=== PATIENT | male | born 1985 | race Caucasian/White ===

== ENCOUNTER 2022-09-15 23:23 | Inpatient (IN) | payer MEDICARE ==
[~2022-09-15] VITALS: Ht 170.2 cm; Wt 148.1 kg
[2022-09-15] MEDS ORDERED: NOVOINJ SC (23:35)
[2022-09-15] MEDS ORDERED: SEMA1PEN2 SQ (23:35)
[2022-09-15] MEDS ORDERED: TRES100I SC (23:35)
[2022-09-16 01:12] LABS: HEMATOCRIT 44.6 % (42.0-52.0); HEMOGLOBIN 15.5 g/dl (13.5-17.5); MEAN CORPUSCULAR HEMOGLOBIN 28.3 pg (27.0-33.0); MEAN CORPUSCULAR HGB CONC 34.8 g/dl (32.0-36.5); MEAN CORPUSCULAR VOLUME 81.4 fl (80.0-96.0); PLATELET COUNT, AUTOMATED 264 10^3/uL (150-450); RED BLOOD COUNT 5.48 10^6/uL (4.30-6.10); WHITE BLOOD COUNT 10.4 10^3/uL (4.0-10.0)
[2022-09-16 01:34] LABS: BARBITURATES URINE NEGATIVE (NEGATIVE); CANNABINOIDS URINE NEGATIVE (NEGATIVE); COCAINE METABOLITE URINE NEGATIVE (NEGATIVE); METHADONE URINE NEGATIVE (NEGATIVE); OPIATES URINE NEGATIVE (NEGATIVE); PHENCYCLIDINE URINE NEGATIVE (NEGATIVE)
[2022-09-16 01:35] LABS: AMPHETAMINES LEVEL URINE NEGATIVE (NEGATIVE); BENZODIAZEPINES URINE NEGATIVE (NEGATIVE)
[2022-09-16 01:36] LABS: ETHYL ALCOHOL (ETHANOL) < 0.003 % (0.000-0.010)
[2022-09-16 01:38] LABS: ALBUMIN 4.1 G/DL (3.2-5.2); ALKALINE PHOSPHATASE 122 U/L (46-116); ALT/SGPT 37 U/L (7.0-40); AST/SGOT 21 U/L (<34); BILIRUBIN,DIRECT 0.2 MG/DL (<0.4); BILIRUBIN,TOTAL 0.4 MG/DL (0.3-1.2); BLOOD UREA NITROGEN 12 MG/DL (9-23); CALCIUM LEVEL 9.7 MG/DL (8.5-10.1); CARBON DIOXIDE LEVEL 24 MMOL/L (20-31); CHLORIDE LEVEL 100 MMOL/L (98-107); CREATININE FOR GFR 0.41 MG/DL (0.70-1.30); GLOMERULAR FILTRATION RATE > 60.0 (>60); GLUCOSE, FASTING 380 MG/DL (60-100); SALICYLATE LEVEL < 3.0 MG/DL (<30); SODIUM LEVEL 132 MMOL/L (136-145); TOTAL PROTEIN 7.5 G/DL (5.7-8.2)
[2022-09-16 01:39] LABS: ACETAMINOPHEN LEVEL < 2.0 UG/ML (10.0-20.0)
[2022-09-16 01:41] LABS: THYROID STIMULATING HORMONE 3.542 uIU/ML (0.55-4.78)
[2022-09-16] MEDS ORDERED: TRES100I SC (01:48)
[2022-09-16] MEDS ORDERED: INSUH10VL SC (01:48)
[2022-09-16] MEDS ORDERED: SEMA0.257 SQ (01:48)
[2022-09-16] MEDS ORDERED: LEVEMIR (INSULIN DETEMIR) 1 UNITS/0.01ML SC ONE (01:50)
[2022-09-16] MEDS ORDERED: HOME MED LIST COMPLETE! XX SCH (01:50)
[2022-09-16 02:13] LABS: HEMOGLOBIN A1c 12.2 % (4.0-6.0)
[2022-09-16] MEDS ORDERED: INSULIN LISPRO (NovoLOG) PER UNIT SC ONE (02:25)
[2022-09-16] MEDS ORDERED: MAALOX 30 ML SUSP *UDC PO PRN (02:45)
[2022-09-16] MEDS ORDERED: MOM 30ML SUSPENSION UDC PO PRN (02:45)
[2022-09-16] MEDS ORDERED: GLUCOSE 4GM CHEW TABLET PO PRN (03:10)
[2022-09-16] MEDS ORDERED: GLUCAGON INJ 1MG VIAL SC PRN (03:10)
[2022-09-16] MEDS ORDERED: DEXTROSE 50% 50ML SYRINGE IV PRN (03:10)
[2022-09-16 05:44] VITALS: BP 141/89
[2022-09-16] MEDS: INSULIN LISPRO (NovoLOG) PER UNIT SC SCH ×4 (06:40→21:10)
[2022-09-16] MEDS ORDERED: INSULIN LISPRO (NovoLOG) PER UNIT SC SCH (07:30)
[2022-09-16] MEDS ORDERED: hydrOXYzine 50 MG TAB PO PRN (16:15)
[2022-09-16 18:27] VITALS: BP 122/68
[2022-09-16] MEDS: LEVEMIR (INSULIN DETEMIR) 1 UNITS/0.01ML SC SCH (21:09)
[2022-09-17 06:22] VITALS: BP 116/70
[2022-09-17] MEDS: INSULIN LISPRO (NovoLOG) PER UNIT SC SCH ×4 (06:49→20:21)
[2022-09-17] MEDS: lamoTRIgine 25MG TAB PO SCH (08:15)
[2022-09-17] MEDS: ACETAMINOPHEN TAB 650MG DOSE (2X325MG) PO PRN (09:43)
[2022-09-17 18:06] VITALS: BP 139/82
[2022-09-17] MEDS: LEVEMIR (INSULIN DETEMIR) 1 UNITS/0.01ML SC SCH (20:20)
[2022-09-18 05:57] VITALS: BP 145/89
[2022-09-18] MEDS: INSULIN LISPRO (NovoLOG) PER UNIT SC SCH ×4 (06:54→20:20)
[2022-09-18] MEDS: lamoTRIgine 25MG TAB PO SCH (08:06)
[2022-09-18] MEDS: ACETAMINOPHEN TAB 650MG DOSE (2X325MG) PO PRN (08:07)
[2022-09-18 18:27] VITALS: BP 123/76
[2022-09-18] MEDS: LEVEMIR (INSULIN DETEMIR) 1 UNITS/0.01ML SC SCH (20:20)
[2022-09-18] MEDS: traZODone 50 MG TAB PO PRN (22:34)
[2022-09-19 05:55] VITALS: BP 99/66
[2022-09-19] MEDS: INSULIN LISPRO (NovoLOG) PER UNIT SC SCH ×4 (06:47→20:46)
[2022-09-19] MEDS: lamoTRIgine 25MG TAB PO SCH (08:43)
[2022-09-19] MEDS: ACETAMINOPHEN TAB 650MG DOSE (2X325MG) PO PRN (14:19)
[2022-09-19 17:29] VITALS: BP 130/79
[2022-09-19] MEDS: LEVEMIR (INSULIN DETEMIR) 1 UNITS/0.01ML SC SCH (20:45)
[2022-09-19] MEDS: traZODone 50 MG TAB PO PRN (23:33)
[2022-09-20 06:03] VITALS: BP 134/65
[2022-09-20] MEDS: INSULIN LISPRO (NovoLOG) PER UNIT SC SCH ×2 (06:21→11:53)
[2022-09-20] MEDS: lamoTRIgine 25MG TAB PO SCH (08:44)
[2022-09-20] MEDS ORDERED: LAMI25TA PO (12:58)
[2022-09-20] MEDS ORDERED: HYDR50TA70 PO (12:58)
[2022-09-20] MEDS ORDERED: TRAZ-252 PO (13:14)
== END 2022-09-20 14:36 | disposition home or self-care (01) | DRG 885 ==
LOC: M ED 23:23 → M ED INP 09-16 02:18 → M PSY 09-16 04:47
PROVIDERS: ADMIT Psychiatry & Neurology Psychiatry; ATTEND Psychiatry & Neurology Psychiatry
DX: F31.9 Bipolar disorder, unspecified (principal); R45.851 Suicidal ideations; Z68.43 Body mass index [BMI] 50.0-59.9, adult; F17.290 Nicotine dependence, other tobacco product, uncomplicated; F41.9 Anxiety disorder, unspecified; E11.40 Type 2 diabetes mellitus with diabetic neuropathy, unspecified; E11.65 Type 2 diabetes mellitus with hyperglycemia; E66.9 Obesity, unspecified; Z81.3 Family history of other psychoactive substance abuse and dependence; Z81.8 Family history of other mental and behavioral disorders; Z91.51 Personal history of suicidal behavior; Z88.0 Allergy status to penicillin; Z79.4 Long term (current) use of insulin; Z62.811 Personal history of psychological abuse in childhood; Z63.0 Problems in relationship with spouse or partner

== ENCOUNTER 2022-09-30 14:27 | Inpatient (IN) | payer MEDICARE ==
[~2022-09-30] VITALS: Ht 170.2 cm; Wt 148.6 kg
[~2022-09-30 14:27] MED LIST: HYDR50TA70 PO; INSUH10VL SC; LAMI25TA PO; NOVOINJ SC; SEMA0.257 SQ; SEMA1PEN2 SQ; TRAZ-252 PO; TRES100I SC
[2022-09-30 15:03] LABS: HEMOGLOBIN 15.3 g/dl (13.5-17.5); MEAN CORPUSCULAR HEMOGLOBIN 27.9 pg (27.0-33.0); MEAN CORPUSCULAR VOLUME 82.1 fl (80.0-96.0); PLATELET COUNT, AUTOMATED 274 10^3/uL (150-450); RED BLOOD COUNT 5.48 10^6/uL (4.30-6.10); WHITE BLOOD COUNT 8.8 10^3/uL (4.0-10.0)
[2022-09-30 15:32] LABS: AMPHETAMINES LEVEL URINE NEGATIVE (NEGATIVE); BARBITURATES URINE NEGATIVE (NEGATIVE); BENZODIAZEPINES URINE NEGATIVE (NEGATIVE); CANNABINOIDS URINE NEGATIVE (NEGATIVE); PHENCYCLIDINE URINE NEGATIVE (NEGATIVE)
[2022-09-30 15:33] LABS: COCAINE METABOLITE URINE NEGATIVE (NEGATIVE); ETHYL ALCOHOL (ETHANOL) < 0.003 % (0.000-0.010); METHADONE URINE NEGATIVE (NEGATIVE); OPIATES URINE NEGATIVE (NEGATIVE)
[2022-09-30 15:34] LABS: ACETAMINOPHEN LEVEL < 2.0 UG/ML (10.0-20.0)
[2022-09-30 15:35] LABS: SALICYLATE LEVEL < 3.0 MG/DL (<30)
[2022-09-30 15:38] LABS: THYROID STIMULATING HORMONE 1.866 uIU/ML (0.55-4.78)
[2022-09-30 15:40] LABS: ALBUMIN 3.7 G/DL (3.2-5.2); ALKALINE PHOSPHATASE 123 U/L (46-116); ALT/SGPT 37 U/L (7.0-40); AST/SGOT 23 U/L (<34); BILIRUBIN,DIRECT 0.2 MG/DL (<0.4); BILIRUBIN,TOTAL 0.6 MG/DL (0.3-1.2); BLOOD UREA NITROGEN 10 MG/DL (9-23); CALCIUM LEVEL 9.2 MG/DL (8.5-10.1); CARBON DIOXIDE LEVEL 27 MMOL/L (20-31); CHLORIDE LEVEL 100 MMOL/L (98-107); CREATININE FOR GFR 0.48 MG/DL (0.70-1.30); GLOMERULAR FILTRATION RATE > 60.0 (>60); GLUCOSE, FASTING 403 MG/DL (60-100); POTASSIUM SERUM 4.5 MMOL/L (3.5-5.1); SODIUM LEVEL 134 MMOL/L (136-145); TOTAL PROTEIN 7.1 G/DL (5.7-8.2)
[2022-09-30] MEDS ORDERED: INSULIN LISPRO (NovoLOG) PER UNIT SC SCH (17:30)
[2022-09-30] MEDS ORDERED: MAALOX 30 ML SUSP *UDC PO PRN (17:30)
[2022-09-30] MEDS ORDERED: OLANZapine ORAL DISINTEGRATING TAB 5MG PO PRN (17:30)
[2022-09-30] MEDS ORDERED: MOM 30ML SUSPENSION UDC PO PRN (17:30)
[2022-09-30] MEDS ORDERED: GLUCAGON INJ 1MG VIAL SC PRN (17:40)
[2022-09-30] MEDS ORDERED: GLUCOSE 4GM CHEW TABLET PO PRN (17:40)
[2022-09-30] MEDS ORDERED: DEXTROSE 50% 50ML SYRINGE IV PRN (17:40)
[2022-09-30] MEDS ORDERED: LAMO25TA4 PO (18:21)
[2022-09-30] MEDS ORDERED: TRAZ-252 PO (18:21)
[2022-09-30] MEDS ORDERED: HYDR50TA70 PO (18:21)
[2022-09-30] MEDS: INSULIN LISPRO (NovoLOG) PER UNIT SC SCH ×2 (18:23→21:27)
[2022-09-30] MEDS ORDERED: HOME MED LIST COMPLETE! XX SCH (18:25)
[2022-09-30] MEDS ORDERED: LEVEMIR (INSULIN DETEMIR) 1 UNITS/0.01ML SC SCH (21:00)
[2022-09-30] MEDS: LEVEMIR (INSULIN DETEMIR) 1 UNITS/0.01ML SC SCH (21:27)
[2022-09-30] MEDS: lamoTRIgine 25MG TAB PO SCH (21:46)
[2022-09-30] MEDS: traZODone 50 MG TAB PO PRN (22:48)
[2022-10-01 06:41] VITALS: BP 115/55
[2022-10-01] MEDS: INSULIN LISPRO (NovoLOG) PER UNIT SC SCH ×4 (06:52→20:56)
[2022-10-01] MEDS ORDERED: INSULIN LISPRO (NovoLOG) PER UNIT SC SCH (07:30)
[2022-10-01] MEDS: lamoTRIgine 25MG TAB PO SCH ×2 (08:26→20:55)
[2022-10-01] MEDS: ACETAMINOPHEN TAB 650MG DOSE (2X325MG) PO PRN (09:29)
[2022-10-01 18:11] VITALS: BP 143/82
[2022-10-01] MEDS: LEVEMIR (INSULIN DETEMIR) 1 UNITS/0.01ML SC SCH (20:55)
[2022-10-01] MEDS: traZODone 50 MG TAB PO PRN (20:55)
[2022-10-02 06:14] VITALS: BP 128/65
[2022-10-02] MEDS: INSULIN LISPRO (NovoLOG) PER UNIT SC SCH ×4 (06:46→21:27)
[2022-10-02] MEDS: lamoTRIgine 25MG TAB PO SCH ×2 (08:01→21:26)
[2022-10-02 18:00] VITALS: BP 127/73
[2022-10-02] MEDS ORDERED: INSULIN LISPRO (NovoLOG) PER UNIT SC ONE (18:25)
[2022-10-02] MEDS: LEVEMIR (INSULIN DETEMIR) 1 UNITS/0.01ML SC SCH (18:45)
[2022-10-02] MEDS: ACETAMINOPHEN TAB 650MG DOSE (2X325MG) PO PRN (20:54)
[2022-10-02] MEDS: traZODone 50 MG TAB PO PRN (21:26)
[2022-10-03 06:04] VITALS: BP 133/68
[2022-10-03] MEDS: INSULIN LISPRO (NovoLOG) PER UNIT SC SCH ×4 (06:56→20:52)
[2022-10-03] MEDS: lamoTRIgine 25MG TAB PO SCH ×2 (07:59→20:51)
[2022-10-03] MEDS: LEVEMIR (INSULIN DETEMIR) 1 UNITS/0.01ML SC SCH ×2 (08:01→20:51)
[2022-10-03 18:00] VITALS: BP 138/90
[2022-10-03] MEDS: traZODone 50 MG TAB PO PRN (21:22)
[2022-10-04] MEDS: LEVEMIR (INSULIN DETEMIR) 1 UNITS/0.01ML SC SCH (06:51)
[2022-10-04] MEDS: INSULIN LISPRO (NovoLOG) PER UNIT SC SCH ×2 (06:51→12:04)
[2022-10-04 06:57] VITALS: BP 148/90
[2022-10-04] MEDS: lamoTRIgine 25MG TAB PO SCH (08:22)
[2022-10-04] MEDS: ACETAMINOPHEN TAB 650MG DOSE (2X325MG) PO PRN (10:20)
[2022-10-04] MEDS ORDERED: CVS1KIT XX (10:40)
[2022-10-04] MEDS ORDERED: LAMO25TA4 PO (10:40)
[2022-10-04] MEDS ORDERED: INSUDET SC (10:40)
[2022-10-04] MEDS ORDERED: LANC1COM MC (10:40)
[2022-10-05] MEDS ORDERED: INSU1MIS XX (14:29)
== END 2022-10-04 13:59 | disposition home or self-care (01) | DRG 885 ==
LOC: M ED 14:27 → M ED INP 17:30 → M PSY 21:30
PROVIDERS: ADMIT Psychiatry & Neurology Psychiatry; ATTEND Psychiatry & Neurology Psychiatry
DX: F31.30 Bipolar disorder, current episode depressed, mild or moderate severity, unspecified (principal); R45.851 Suicidal ideations; E87.1 Hypo-osmolality and hyponatremia; F17.200 Nicotine dependence, unspecified, uncomplicated; F41.9 Anxiety disorder, unspecified; F79 Unspecified intellectual disabilities; Z56.0 Unemployment, unspecified; E11.9 Type 2 diabetes mellitus without complications; E66.9 Obesity, unspecified; Z79.4 Long term (current) use of insulin; Z79.899 Other long term (current) drug therapy; Z88.0 Allergy status to penicillin; Z20.822 Contact with and (suspected) exposure to COVID-19; Z87.820 Personal history of traumatic brain injury

== ENCOUNTER 2022-11-05 16:09 | Emergency (ER) | payer MEDICARE ==
[~2022-11-05] VITALS: Ht 170.2 cm; Wt 140.8 kg
[~2022-11-05 16:09] MED LIST changes: +CVS1KIT XX; +INSU1MIS XX; +INSUDET SC; +LAMO25TA4 PO; +LANC1COM MC
[2022-11-05 16:57] LABS: BASO # 0.1 10^3/uL (0.0-0.2); BASO % 0.7 % (0.0-1.0); EOS # 0.1 10^3/uL (0.0-0.5); EOS % 1.4 % (0.0-3.0); HEMATOCRIT 43.6 % (42.0-52.0); HEMOGLOBIN 14.8 g/dl (13.5-17.5); LYMPH # 2.3 10^3/uL (1.5-5.0); LYMPH % 27.5 % (24.0-44.0); MEAN CORPUSCULAR HEMOGLOBIN 27.7 pg (27.0-33.0); MEAN CORPUSCULAR HGB CONC 33.9 g/dl (32.0-36.5); MEAN CORPUSCULAR VOLUME 81.5 fl (80.0-96.0); MONO # 0.6 10^3/uL (0.0-0.8); MONO % 7.3 % (2.0-8.0); NEUTROPHILS # 5.3 10^3/uL (1.5-8.5); NEUTROPHILS % 62.6 % (36.0-66.0); PLATELET COUNT, AUTOMATED 261 10^3/uL (150-450); RED BLOOD COUNT 5.35 10^6/uL (4.30-6.10); WHITE BLOOD COUNT 8.5 10^3/uL (4.0-10.0)
[2022-11-05 17:19] LABS: CK-MB VALUE MASS 1.9 NG/ML (<3.6); ETHYL ALCOHOL (ETHANOL) < 0.003 % (0.000-0.010)
[2022-11-05 17:20] LABS: SALICYLATE LEVEL < 3.0 MG/DL (<30)
[2022-11-05 17:21] LABS: ACETAMINOPHEN LEVEL < 2.0 UG/ML (10.0-20.0); ALBUMIN 3.7 G/DL (3.2-5.2); ALKALINE PHOSPHATASE 108 U/L (46-116); ALT/SGPT 30 U/L (7.0-40); AST/SGOT 16 U/L (<34); BILIRUBIN,DIRECT 0.3 MG/DL (<0.4); BILIRUBIN,TOTAL 0.9 MG/DL (0.3-1.2); BLOOD UREA NITROGEN 11 MG/DL (9-23); CALCIUM LEVEL 8.6 MG/DL (8.5-10.1); CARBON DIOXIDE LEVEL 25 MMOL/L (20-31); CHLORIDE LEVEL 104 MMOL/L (98-107); CREATININE FOR GFR 0.46 MG/DL (0.70-1.30); GLOMERULAR FILTRATION RATE > 60.0 (>60); GLUCOSE, FASTING 328 MG/DL (60-100); SODIUM LEVEL 136 MMOL/L (136-145); TOTAL PROTEIN 6.8 G/DL (5.7-8.2)
[2022-11-05 17:22] LABS: CPK CREATINE PHOSPHOKINASE 94 U/L (46-171); MB/CK RELATIVE INDEX 2.02 (< OR =4)
[2022-11-05 17:23] LABS: THYROID STIMULATING HORMONE 2.928 uIU/ML (0.55-4.78)
[2022-11-05] MEDS ORDERED: ISOVUE-370 76% 100ML VIAL As Ordered ONE (18:34)
[2022-11-05] MEDS ORDERED: diphenhydrAMINE 50MG/ML VIAL IV STA (19:36)
[2022-11-05] MEDS ORDERED: NS 1,000 ML IV ONE (19:40)
[2022-11-05] MEDS ORDERED: METOCLOPRAMIDE INJ 10MG/2ML VIAL IV ONE (19:40)
[2022-11-05] MEDS ORDERED: KETOROLAC 30 MG/ML 1ML VIAL IV ONE (19:40)
[2022-11-05 21:00] VITALS: TEMP 98.8
[2022-11-05 21:30] VITALS: BP 122/60
[2022-11-05 21:31] VITALS: O2SAT 97
== END 2022-11-05 21:46 | disposition home or self-care (01) ==
LOC: M ED 16:09
DX: G43.909 Migraine, unspecified, not intractable, without status migrainosus (principal); F31.9 Bipolar disorder, unspecified; Z86.73 Personal history of transient ischemic attack (TIA), and cerebral infarction without residual deficits; Z88.0 Allergy status to penicillin; Z79.4 Long term (current) use of insulin; Z79.899 Other long term (current) drug therapy
CPT/HCPCS: 70450; 70496; 70498; 71045; 80048; 80076; 80143; 81001; 82077; 82140; 82550; 82553; 83605; 84443; 84484; 85025; 87040; 87077; 87086; 93005; 93041; 94760; 99285; J1200; J1885; J2765; Q9967

== ENCOUNTER 2022-11-14 14:10 | Inpatient (IN) | payer MEDICARE ==
[~2022-11-14] VITALS: Ht 170.2 cm; Wt 150.0 kg
[2022-11-14 14:44] LABS: BASO # 0.1 10^3/uL (0.0-0.2); BASO % 0.7 % (0.0-1.0); EOS # 0.1 10^3/uL (0.0-0.5); EOS % 0.9 % (0.0-3.0); HEMATOCRIT 43.2 % (42.0-52.0); HEMOGLOBIN 14.5 g/dl (13.5-17.5); LYMPH # 1.9 10^3/uL (1.5-5.0); LYMPH % 21.6 % (24.0-44.0); MEAN CORPUSCULAR HGB CONC 33.6 g/dl (32.0-36.5); MEAN CORPUSCULAR VOLUME 83.4 fl (80.0-96.0); MONO # 0.4 10^3/uL (0.0-0.8); MONO % 4.8 % (2.0-8.0); NEUTROPHILS # 6.1 10^3/uL (1.5-8.5); NEUTROPHILS % 71.1 % (36.0-66.0); PLATELET COUNT, AUTOMATED 250 10^3/uL (150-450); RED BLOOD COUNT 5.18 10^6/uL (4.30-6.10); WHITE BLOOD COUNT 8.6 10^3/uL (4.0-10.0)
[2022-11-14 14:50] LABS: ERYTHROCYTE SEDIMENTATION RATE 45 mm/hr (0-15)
[2022-11-14 15:22] LABS: BLOOD UREA NITROGEN 11 MG/DL (9-23); CALCIUM LEVEL 8.8 MG/DL (8.5-10.1); CARBON DIOXIDE LEVEL 27 MMOL/L (20-31); CHLORIDE LEVEL 100 MMOL/L (98-107); CREATININE FOR GFR 0.44 MG/DL (0.70-1.30); GLOMERULAR FILTRATION RATE > 60.0 (>60); GLUCOSE, FASTING 552 MG/DL (60-100); POTASSIUM SERUM 4.1 MMOL/L (3.5-5.1); SODIUM LEVEL 135 MMOL/L (136-145)
[2022-11-14] MEDS ORDERED: VANCOMYCIN HCL 2,000 MG, VIAL MATE ADAPTER 1 EACH in D5W 250 ML IV STA (16:39)
[2022-11-14] MEDS ORDERED: metroNIDAZOLE (FLAGYL) 500MG TABLET PO STA (16:39)
[2022-11-14] MEDS ORDERED: KETOROLAC 30 MG/ML 1ML VIAL IV ONE (16:40)
[2022-11-14] MEDS ORDERED: CLINDAMYCIN 300 MG in IV 1 EA IV ONE (16:40)
[2022-11-14 17:22] LABS: AMYLASE 24 U/L (30-118)
[2022-11-14 17:45] LABS: VENOUS BASE EXCESS -1.2 (-2.0-2.0); VENOUS HCO3 23.6 MMOL/L (23.0-27.0); VENOUS O2 SATURATION 76.5 % (60.0-80.0); VENOUS PARTIAL PRESSURE CO2 39.9 mmHg (38.0-50.0); VENOUS PARTIAL PRESSURE O2 39.4 mmHg (30.0-50.0); VENOUS TOTAL CO2 24.8 MMOL/L (24.0-28.0)
[2022-11-14 17:45] LABS: ALBUMIN 3.5 G/DL (3.2-5.2); ALKALINE PHOSPHATASE 100 U/L (46-116); ALT/SGPT 22 U/L (7.0-40); AST/SGOT < 8 U/L (<34); BILIRUBIN,DIRECT 0.2 MG/DL (<0.4); BILIRUBIN,TOTAL 0.5 MG/DL (0.3-1.2)
[2022-11-14] MEDS ORDERED: VANCOMYCIN HCL 1,000 MG, VIAL MATE ADAPTER 1 EACH in D5W 250 ML IV ONE ×2 (18:00→19:00)
[2022-11-14 18:20] LABS: RSV AMPLIFICATION NEGATIVE (NEGATIVE)
[2022-11-14] MEDS ORDERED: LAMO100T3 PO (18:49)
[2022-11-14] MEDS ORDERED: INSUDET SC (18:49)
[2022-11-14] MEDS ORDERED: HOME MED LIST COMPLETE! XX SCH (18:50)
[2022-11-14] MEDS ORDERED: LevoFLOXacin IV 750 MG in IV 1 EA IV ONE (20:00)
[2022-11-14] MEDS ORDERED: LEVEMIR (INSULIN DETEMIR) 1 UNITS/0.01ML SC SCH (21:00)
[2022-11-14] MEDS ORDERED: HumuLIN R (REGULAR) INSULIN (NovoLIN R) **100U/ML** PER UNIT IV STA (21:39)
[2022-11-14] MEDS ORDERED: hydrOXYzine 50 MG TAB PO PRN (21:45)
[2022-11-14] MEDS ORDERED: DEXTROSE 50% 50ML SYRINGE IV PRN (21:45)
[2022-11-14] MEDS ORDERED: ACETAMINOPHEN TAB 650MG DOSE (2X325MG) PO PRN (21:45)
[2022-11-14] MEDS ORDERED: VANCOMYCIN HCL 2,000 MG, VIAL MATE ADAPTER 1 EACH in NS 250 ML IV SCH (21:45)
[2022-11-14] MEDS ORDERED: GLUCAGON INJ 1MG VIAL SC PRN (21:45)
[2022-11-14] MEDS ORDERED: GLUCOSE 4GM CHEW TABLET PO PRN (21:45)
[2022-11-14] MEDS: traZODone 50 MG TAB PO SCH (22:24)
[2022-11-14] MEDS: lamoTRIgine 25MG TAB PO SCH (22:24)
[2022-11-14] MEDS: NS 1,000 ML IV SCH ×2 (22:25→22:46)
[2022-11-14 22:54] VITALS: BP 116/66; TEMP 97.5; O2SAT 97
[2022-11-14] MEDS ORDERED: KETOROLAC 30 MG/ML 1ML VIAL IV PRN (23:00)
[2022-11-14] MEDS: INSULIN LISPRO (NovoLOG) PER UNIT SC SCH (23:23)
[2022-11-15] MEDS: NS 1,000 ML IV SCH ×3 (00:26→17:03)
[2022-11-15] MEDS ORDERED: VANCOMYCIN HCL 1,000 MG, VIAL MATE ADAPTER 1 EACH in D5W 250 ML IV SCH (02:00)
[2022-11-15] MEDS ORDERED: VANCOMYCIN HCL 500 MG in D5W MINI-BAG PLUS 100 ML IV SCH ×2 (03:00→11:00)
[2022-11-15 06:00] VITALS: BP 127/77; TEMP 97; O2SAT 97
[2022-11-15 06:19] LABS: ALBUMIN 2.8 G/DL (3.2-5.2); ALKALINE PHOSPHATASE 83 U/L (46-116); ALT/SGPT 14 U/L (7.0-40); AST/SGOT 12 U/L (<34); BILIRUBIN,TOTAL 0.5 MG/DL (0.3-1.2); BLOOD UREA NITROGEN 12 MG/DL (9-23); CALCIUM LEVEL 8.5 MG/DL (8.5-10.1); CARBON DIOXIDE LEVEL 28 MMOL/L (20-31); CHLORIDE LEVEL 101 MMOL/L (98-107); CREATININE FOR GFR 0.53 MG/DL (0.70-1.30); GLOMERULAR FILTRATION RATE > 60.0 (>60); GLUCOSE, FASTING 413 MG/DL (60-100); POTASSIUM SERUM 3.8 MMOL/L (3.5-5.1); SODIUM LEVEL 135 MMOL/L (136-145); TOTAL PROTEIN 5.5 G/DL (5.7-8.2)
[2022-11-15] MEDS ORDERED: HumuLIN R (REGULAR) INSULIN (NovoLIN R) **100U/ML** PER UNIT IV STA (06:27)
[2022-11-15 07:38] LABS: ANTI-STREPTOLYSIN O QUANT 192.6 IU/ML (<195)
[2022-11-15] MEDS: lamoTRIgine 25MG TAB PO SCH ×2 (07:46→22:07)
[2022-11-15] MEDS: LEVEMIR (INSULIN DETEMIR) 1 UNITS/0.01ML SC SCH ×2 (07:47→22:08)
[2022-11-15] MEDS: INSULIN LISPRO (NovoLOG) PER UNIT SC SCH ×4 (07:47→22:08)
[2022-11-15] MEDS: VANCOMYCIN HCL 750 MG, VIAL MATE ADAPTER 1 EACH in D5W 250 ML IV SCH ×2 (10:10→17:37)
[2022-11-15] MEDS ORDERED: PROHANCE 279.3MG/ML 15ML VIAL As Ordered ONE (11:41)
[2022-11-15] MEDS ORDERED: PROHANCE 279.3MG/ML 5ML VIAL As Ordered ONE (11:41)
[2022-11-15 11:55] LABS: HEMOGLOBIN A1c 11.6 % (4.0-6.0)
[2022-11-15 14:00] VITALS: BP 117/58; TEMP 97.9; O2SAT 98
[2022-11-15] MEDS ORDERED: VANCOMYCIN HCL 750 MG, VIAL MATE ADAPTER 1 EACH in D5W 250 ML IV ONE (19:00)
[2022-11-15 20:20] VITALS: BP 136/72; TEMP 98.1; O2SAT 98
[2022-11-15] MEDS: traZODone 50 MG TAB PO SCH (22:08)
[2022-11-15] MEDS: HEPARIN SOD (PORCINE) 5000UNITS/ML 1ML VIAL/SYRINGE SC SCH (22:09)
[2022-11-16] MEDS: VANCOMYCIN HCL 750 MG, VIAL MATE ADAPTER 1 EACH in D5W 250 ML IV SCH ×4 (02:56→11:00)
[2022-11-16] MEDS: HEPARIN SOD (PORCINE) 5000UNITS/ML 1ML VIAL/SYRINGE SC SCH (06:36)
[2022-11-16] MEDS: NS 1,000 ML IV SCH (06:38)
[2022-11-16 06:40] VITALS: BP 138/77; TEMP 97.9; O2SAT 98
[2022-11-16 07:32] LABS: BASO # 0.1 10^3/uL (0.0-0.2); BASO % 0.7 % (0.0-1.0); EOS # 0.2 10^3/uL (0.0-0.5); EOS % 2.6 % (0.0-3.0); HEMATOCRIT 39.2 % (42.0-52.0); HEMOGLOBIN 13.1 g/dl (13.5-17.5); LYMPH # 2.8 10^3/uL (1.5-5.0); LYMPH % 33.6 % (24.0-44.0); MEAN CORPUSCULAR HEMOGLOBIN 28.1 pg (27.0-33.0); MEAN CORPUSCULAR HGB CONC 33.4 g/dl (32.0-36.5); MEAN CORPUSCULAR VOLUME 83.9 fl (80.0-96.0); MONO # 0.5 10^3/uL (0.0-0.8); MONO % 5.4 % (2.0-8.0); NEUTROPHILS # 4.7 10^3/uL (1.5-8.5); NEUTROPHILS % 56.7 % (36.0-66.0); PLATELET COUNT, AUTOMATED 247 10^3/uL (150-450); RED BLOOD COUNT 4.67 10^6/uL (4.30-6.10); WHITE BLOOD COUNT 8.3 10^3/uL (4.0-10.0)
[2022-11-16 08:23] LABS: BLOOD UREA NITROGEN 11 MG/DL (9-23); CARBON DIOXIDE LEVEL 27 MMOL/L (20-31); CHLORIDE LEVEL 102 MMOL/L (98-107); CREATININE FOR GFR 0.44 MG/DL (0.70-1.30); GLOMERULAR FILTRATION RATE > 60.0 (>60); GLUCOSE, FASTING 298 MG/DL (60-100); POTASSIUM SERUM 3.7 MMOL/L (3.5-5.1); SODIUM LEVEL 135 MMOL/L (136-145)
[2022-11-16] MEDS: INSULIN LISPRO (NovoLOG) PER UNIT SC SCH ×2 (09:33→12:19)
[2022-11-16] MEDS: lamoTRIgine 25MG TAB PO SCH (09:33)
[2022-11-16] MEDS: LEVEMIR (INSULIN DETEMIR) 1 UNITS/0.01ML SC SCH (09:34)
[2022-11-16] MEDS ORDERED: METF-877 PO (10:38)
[2022-11-16] MEDS ORDERED: INSUDET SC (10:38)
[2022-11-16] MEDS ORDERED: DOXY-444 PO (10:38)
== END 2022-11-16 13:15 | disposition home or self-care (01) | DRG 603 ==
LOC: M ED 14:10 → M ED INP 21:42 → ENRESERV 22:22 → M MS5PR 22:55
PROVIDERS: ADMIT Internal Medicine; ATTEND Internal Medicine
DX: L03.115 Cellulitis of right lower limb (principal); Z68.42 Body mass index [BMI] 45.0-49.9, adult; E11.65 Type 2 diabetes mellitus with hyperglycemia; E66.01 Morbid (severe) obesity due to excess calories; F41.9 Anxiety disorder, unspecified; Z88.0 Allergy status to penicillin; F39 Unspecified mood [affective] disorder; Z91.138 Patient's unintentional underdosing of medication regimen for other reason; T38.3X6A Underdosing of insulin and oral hypoglycemic [antidiabetic] drugs, initial encounter; Z79.4 Long term (current) use of insulin; Z79.899 Other long term (current) drug therapy

== ENCOUNTER 2022-11-24 13:21 | Emergency (ER) | payer MEDICARE ==
[~2022-11-24] VITALS: Ht 170.2 cm; Wt 147.1 kg
[~2022-11-24 13:21] MED LIST changes: +DOXY-444 PO; +LAMO100T3 PO; +METF-877 PO
[2022-11-24 15:45] LABS: BASO # 0.1 10^3/uL (0.0-0.2); BASO % 0.6 % (0.0-1.0); EOS # 0.1 10^3/uL (0.0-0.5); EOS % 1.2 % (0.0-3.0); HEMATOCRIT 40.5 % (42.0-52.0); HEMOGLOBIN 14.1 g/dl (13.5-17.5); LYMPH # 2.2 10^3/uL (1.5-5.0); LYMPH % 21.7 % (24.0-44.0); MEAN CORPUSCULAR HEMOGLOBIN 28.9 pg (27.0-33.0); MEAN CORPUSCULAR HGB CONC 34.8 g/dl (32.0-36.5); MONO # 0.6 10^3/uL (0.0-0.8); MONO % 5.5 % (2.0-8.0); NEUTROPHILS # 7.1 10^3/uL (1.5-8.5); NEUTROPHILS % 70.3 % (36.0-66.0); PLATELET COUNT, AUTOMATED 251 10^3/uL (150-450); RED BLOOD COUNT 4.88 10^6/uL (4.30-6.10); WHITE BLOOD COUNT 10.1 10^3/uL (4.0-10.0)
[2022-11-24 15:52] LABS: BLOOD UREA NITROGEN 12 MG/DL (9-23); CALCIUM LEVEL 8.7 MG/DL (8.5-10.1); CARBON DIOXIDE LEVEL 29 MMOL/L (20-31); CHLORIDE LEVEL 101 MMOL/L (98-107); CREATININE FOR GFR 0.42 MG/DL (0.70-1.30); GLOMERULAR FILTRATION RATE > 60.0 (>60); GLUCOSE, FASTING 302 MG/DL (60-100); SODIUM LEVEL 133 MMOL/L (136-145)
[2022-11-24 16:00] LABS: RSV AMPLIFICATION NEGATIVE (NEGATIVE)
[2022-11-24 16:20] LABS: ERYTHROCYTE SEDIMENTATION RATE 39 mm/hr (0-15)
[2022-11-24] MEDS ORDERED: INSULIN LISPRO (NovoLOG) PER UNIT SC ONE (18:00)
[2022-11-24] MEDS ORDERED: NS 1,000 ML IV ONE (18:25)
[2022-11-24 19:53] VITALS: BP 112/62; TEMP 97.2; O2SAT 100
== END 2022-11-24 20:00 | disposition home or self-care (01) ==
LOC: M ED 13:21
DX: E11.621 Type 2 diabetes mellitus with foot ulcer (principal); Z88.0 Allergy status to penicillin; Z91.010 Allergy to peanuts; Z79.4 Long term (current) use of insulin; Z79.899 Other long term (current) drug therapy; Z79.84 Long term (current) use of oral hypoglycemic drugs

== ENCOUNTER 2022-12-15 17:32 | Emergency (ER) | payer MEDICARE ==
[~2022-12-15] VITALS: Ht 170.2 cm; Wt 141.8 kg
[2022-12-15 18:33] LABS: BASO % 0.4 % (0.0-1.0); EOS # 0.1 10^3/uL (0.0-0.5); EOS % 0.7 % (0.0-3.0); HEMATOCRIT 44.4 % (42.0-52.0); HEMOGLOBIN 14.8 g/dl (13.5-17.5); LYMPH # 2.4 10^3/uL (1.5-5.0); LYMPH % 21.6 % (24.0-44.0); MEAN CORPUSCULAR HEMOGLOBIN 27.8 pg (27.0-33.0); MEAN CORPUSCULAR HGB CONC 33.3 g/dl (32.0-36.5); MEAN CORPUSCULAR VOLUME 83.3 fl (80.0-96.0); MONO # 0.7 10^3/uL (0.0-0.8); MONO % 6.7 % (2.0-8.0); NEUTROPHILS # 7.7 10^3/uL (1.5-8.5); NEUTROPHILS % 69.9 % (36.0-66.0); RED BLOOD COUNT 5.33 10^6/uL (4.30-6.10)
[2022-12-15 19:07] LABS: BLOOD UREA NITROGEN 11 MG/DL (9-23); CALCIUM LEVEL 9.2 MG/DL (8.5-10.1); CARBON DIOXIDE LEVEL 24 MMOL/L (20-31); CHLORIDE LEVEL 100 MMOL/L (98-107); CREATININE FOR GFR 0.41 MG/DL (0.70-1.30); GLOMERULAR FILTRATION RATE > 60.0 (>60); GLUCOSE, FASTING 373 MG/DL (60-100); POTASSIUM SERUM 4.2 MMOL/L (3.5-5.1); SODIUM LEVEL 134 MMOL/L (136-145)
[2022-12-15 19:30] LABS: ERYTHROCYTE SEDIMENTATION RATE 31 mm/hr (0-15)
[2022-12-15] MEDS ORDERED: D5W IV ONE (20:45)
[2022-12-15] MEDS ORDERED: MORPHINE 2 MG/ML 1ML VIAL IV ONE (20:45)
[2022-12-15] MEDS ORDERED: DOXYCYCLINE HYCLATE IV ONE (20:45)
[2022-12-15] MEDS ORDERED: DOXYCYCLINE HYCLATE 200 MG in D5W MINI-BAG PLUS 100 ML IV ONE (20:45)
[2022-12-15] MEDS ORDERED: ISOVUE-370 76% 100ML VIAL As Ordered ONE (20:49)
[2022-12-15] MEDS ORDERED: DOXY100C82 PO (22:01)
[2022-12-15] MEDS ORDERED: TRAM50TA2 PO (22:03)
[2022-12-15 22:09] VITALS: BP 133/77; TEMP 98.3; O2SAT 98
== END 2022-12-15 22:21 | disposition home or self-care (01) ==
LOC: M ED 17:32
DX: L03.115 Cellulitis of right lower limb (principal); Z88.0 Allergy status to penicillin; Z91.010 Allergy to peanuts; E11.9 Type 2 diabetes mellitus without complications; F41.9 Anxiety disorder, unspecified; F32.A Depression, unspecified; F31.9 Bipolar disorder, unspecified; Z79.4 Long term (current) use of insulin; Z79.899 Other long term (current) drug therapy; Z79.84 Long term (current) use of oral hypoglycemic drugs
CPT/HCPCS: 36415; 73701; 80048; 85025; 85652; 86140; 87040; 96365; 96375; 99283; Q9967

== ENCOUNTER 2023-01-24 17:34 | Emergency (ER) | payer MEDICARE ==
[~2023-01-24] VITALS: Ht 170.2 cm; Wt 142.0 kg
[~2023-01-24 17:34] MED LIST changes: +DOXY100C82 PO; +TRAM50TA2 PO
[2023-01-24] MEDS ORDERED: NS 1,000 ML IV ONE (20:40)
[2023-01-24 21:40] LABS: BASO # 0.1 10^3/uL (0.0-0.2); BASO % 0.7 % (0.0-1.0); EOS # 0.1 10^3/uL (0.0-0.5); HEMATOCRIT 41.3 % (42.0-52.0); HEMOGLOBIN 13.9 g/dl (13.5-17.5); LYMPH # 2.8 10^3/uL (1.5-5.0); LYMPH % 25.7 % (24.0-44.0); MEAN CORPUSCULAR HGB CONC 33.7 g/dl (32.0-36.5); MEAN CORPUSCULAR VOLUME 83.3 fl (80.0-96.0); MONO # 0.8 10^3/uL (0.0-0.8); MONO % 7.6 % (2.0-8.0); NEUTROPHILS # 6.9 10^3/uL (1.5-8.5); NEUTROPHILS % 64.5 % (36.0-66.0); PLATELET COUNT, AUTOMATED 299 10^3/uL (150-450); RED BLOOD COUNT 4.96 10^6/uL (4.30-6.10); WHITE BLOOD COUNT 10.7 10^3/uL (4.0-10.0)
[2023-01-24 21:46] LABS: ERYTHROCYTE SEDIMENTATION RATE 65 mm/hr (0-15)
[2023-01-24 22:05] LABS: ALBUMIN 3.2 G/DL (3.2-5.2); ALKALINE PHOSPHATASE 93 U/L (46-116); ALT/SGPT 29 U/L (7.0-40); AST/SGOT 15 U/L (<34); BILIRUBIN,DIRECT 0.2 MG/DL (<0.4); BILIRUBIN,TOTAL 0.5 MG/DL (0.3-1.2); BLOOD UREA NITROGEN 10 MG/DL (9-23); CALCIUM LEVEL 9.2 MG/DL (8.5-10.1); CARBON DIOXIDE LEVEL 28 MMOL/L (20-31); CHLORIDE LEVEL 99 MMOL/L (98-107); CREATININE FOR GFR 0.47 MG/DL (0.70-1.30); GLOMERULAR FILTRATION RATE > 60.0 (>60); GLUCOSE, FASTING 319 MG/DL (60-100); POTASSIUM SERUM 3.8 MMOL/L (3.5-5.1); SODIUM LEVEL 133 MMOL/L (136-145); TOTAL PROTEIN 7.8 G/DL (5.7-8.2)
[2023-01-24] MEDS ORDERED: ceFAZolin SOD 2 GM in IV 1 EA IV ONE (22:05)
[2023-01-24 22:33] LABS: RSV AMPLIFICATION NEGATIVE (NEGATIVE)
[2023-01-24 23:04] VITALS: BP 116/57; TEMP 97.1; O2SAT 97
[2023-01-24] MEDS ORDERED: DOXY-443 PO (23:43)
[2023-01-28] MEDS ORDERED: LEVO1TAB39 PO (08:46)
== END 2023-01-25 00:18 | disposition home or self-care (01) ==
LOC: M ED 17:34
DX: E11.621 Type 2 diabetes mellitus with foot ulcer (principal); L97.519 Non-pressure chronic ulcer of other part of right foot with unspecified severity; L03.115 Cellulitis of right lower limb; F41.9 Anxiety disorder, unspecified; F31.9 Bipolar disorder, unspecified; Z88.0 Allergy status to penicillin; Z79.4 Long term (current) use of insulin; Z79.899 Other long term (current) drug therapy
CPT/HCPCS: 73630; 80048; 80076; 83605; 85025; 85652; 86140; 87040; 87070; 87077; 87186; 87205; 87631; 96361; 96365; 99284; J0690